=== PATIENT | male | born 2000 | race Two or more races ===

== ENCOUNTER 2023-07-25 11:00 | Outpatient (AMB) | payer OTHER, SELFPAY ==
--- NOTE | 2023-07-25 11:03 | AM.OFFWIN_ITS ---
Intake Vital Signs 07/25/23 11:07 Height 5 ft 7 in Weight 205 lb BMI 32.1 BP 112/72 Blood Pressure Location Rt brachial Position Sitting Pulse 76 Pulse Source Pulse Oximeter Temp 100.2 F Temp Source Oral Pulse Oximetry (%) 97 Intake Visit Reasons: EP Coughing alot , Congestion, neg for covid Intake Note: pt is here today for coughing, sinus congestion, has negative at home covid test. Patient Tobacco Use Status: Never used Tobacco Allergies No Known Allergies Allergy (Verified 07/25/23 11:37) Medication List - Last Reconciled 07/25/23 by HOLLIS Pritchard cetirizine (Zyrtec) 10 mg PO DAILY PRN fluticasone propionate 110 mcg/actuation (Flovent HFA) 2 puffs inhalation BID inhalational spacing device (Aerochamber MV spacer) As directed ProAir HFA 90 mcg/actuation (albuterol sulfate) 2 puffs inhalation Q6H PRN NS Do you need a note to return to daycare/school/sports/work: Yes HPI HPI Comments History of Present Illness Details Patient is a 22-year-old male in today for a sick visit. He states for the past 2 days he has developed symptoms of sore throat, chest tightness, cough, headache. He has sick contacts at work. States he has had low-grade fever, little appetite, however he is able to hold down foods and drinks. Denies chest pain, shortness a breath, numbness, nausea, vomiting, diarrhea. Has tried Tylenol with mild effect Will obtain strep any URI swab. [facility] Medical History Obesity (BMI 35.0-39.9 without comorbidity) Mild intermittent asthma in adult without complication Surgical History No pertinent past surgical history Family History Maternal Aunt Bronchial asthma Father Psoriasis Mother Anxiety Social History Housing: House Patient Tobacco Use Status: Never used Tobacco e-Cigarette/Vaping Use: Never Used service: No Current occupational status: employed Review of Systems Const All systems reviewed & are unremarkable except as noted in HPI and below Physical Exam Vital Signs: Last Vital Signs Temp 100.2 F 07/25/23 11:07 Pulse 76 07/25/23 11:07 BP 112/72 07/25/23 11:07 Pulse Ox 97 07/25/23 11:07 BMI result Body Mass Index 32.1 Const Other: Appearance: Alert.? Oriented X3.? No acute distress.? Head: Normocephalic, Eyes: Pupils equal, round and reactive to light.? ENT: Pharynx erythema + cobblestone. No post nasal drip. TM intact and pearly warren. Neck: Normal inspection.? Neck supple.? CVS: Normal heart rate and rhythm.? Pulses normal.? Respiratory: No respiratory distress.? Breath sounds normal.? Neuro: Oriented X 3.? Results AMB Rapid Strep AMB Rapid Strep Negative Last Edit by Prem Bethea MA on 07/25/23 11:52 Assessment & Plan Assessment & Plan (1) Upper respiratory infection: Comment: Will obtain URI swab. In office strep was negative. Will refill patient's albuterol inhaler and also give prescription for prednisone. Patient has been educated on signs of worsening symptoms and when to report back to the walk-in or when to present to the ED. he has also been educated to stay hydrated, rest. Code(s): J06.9 - Acute upper respiratory infection, unspecified Qualifiers: URI type: unspecified URI Qualified Code(s): J06.9 - Acute upper respiratory infection, unspecified Plan: Take your medications as prescribed. If you were prescribed antibiotics today, it is important that you take your medication to their entirety, do not skip any doses, do not finish them early. Follow-up with your primary care provider this week. Return to the emergency department with new or worsening symptoms. Such as fev ers, chills, chest pain, shortness of breath, nausea, vomiting, dizziness, headache, vision changes, lethargy In case of emergency call 911 Plan follow up with pcp. Orders: Orders SARS-CoV2/FLU/RSV Today J06.9 - Acute upper respiratory infection, unspecified Medications: New prednisone 40 mg (2 x 20 mg) PO DAILY 10 tabs 0RF Refilled ProAir HFA 90 mcg/actuation (albuterol sulfate) 2 puffs inhalation Q6H PRN 8.5 grams 0RF shortness of breath or wheezing NS Coding Level of Care Code Est Pt Level 3 (54560) Diagnoses Upper respiratory tract infection, unspecified type J06.9 URI type: unspecified URI Time Spent (min) 23
[2023-07-25 11:07] VITALS: BP 112/72; PULSE 76; TEMP 37.9; O2SAT 97; BMI 32.1
== END 2023-07-25 12:09 | disposition home or self-care (01) ==
PROVIDERS: PCP Internal Medicine; Visit Provider Nurse Practitioner Primary Care
DX: J06.9 Acute upper respiratory infection, unspecified (principal)
CPT/HCPCS: 99213

== ENCOUNTER 2023-07-25 13:43 | Outpatient (REF) | payer OTHER, SELFPAY ==
[2023-07-25 14:45] LABS: Influenza A PCR NEGATIVE (Negative); Influenza B PCR NEGATIVE (Negative); Resp Syncy Virus RNA Qual PCR NEGATIVE (Negative); SARS COV2 PCR INHOUSE NEGATIVE (Negative)
== END 2023-07-25 13:44 | disposition home or self-care (01) ==
LOC: HO.LNP 13:43
PROVIDERS: Visit Provider Nurse Practitioner Primary Care
DX: J06.9 Acute upper respiratory infection, unspecified (principal)
CPT/HCPCS: 0241U

== ENCOUNTER 2023-08-04 11:37 | Outpatient (AMB) | payer OTHER, SELFPAY ==
[2023-08-04 12:06] VITALS: BP 118/70; PULSE 78; TEMP 37.2; O2SAT 98; BMI 32.1
--- NOTE | 2023-08-04 12:06 | AM.OFFWIN_ITS ---
Intake Vital Signs 08/04/23 12:06 Height 5 ft 7 in Weight 205 lb BMI 32.1 BP 118/70 Blood Pressure Location Rt brachial Position Sitting Pulse 78 Pulse Source Pulse Oximeter Temp 98.9 F Temp Source Temporal Artery Scan Pulse Oximetry (%) 98 Intake Visit Reasons: EP ear infection antibiotics not working Intake Note: pt is here for c/o ear infection was seen in another urgent care and states his ears still feel discomfort Patient Tobacco Use Status: Never used Tobacco Allergies No Known Allergies Allergy (Verified 08/04/23 12:08) Do you need a note to return to daycare/school/sports/work: No HPI EP ear infection antibiotics not working HPI Details 22-year-old male patient presents today the walk-in clinic for bilateral ear pressure/pain, [id number]. He was seen for this at another urgent care office about 1 week ago, and was diagnosed with bilateral otitis media, and started on amoxicillin. He was also prescribed Flonase and Zyrtec, however it does not sound like he has been taking these. He completes his course of amoxicillin today, and reports his ear pressure/pain remains the same. Denies any fever or chills. Denies any other upper respiratory symptoms. [facility] Medical History Obesity (BMI 35.0-39.9 without comorbidity) Mild intermittent asthma in adult without complication Surgical History No pertinent past surgical history Family History Maternal Aunt Bronchial asthma Father Psoriasis Mother Anxiety Social History Housing: House Patient Tobacco Use Status: Never used Tobacco e-Cigarette/Vaping Use: Never Used service: No Current occupational status: employed Review of Systems Const All systems reviewed & are unremarkable except as noted in HPI and below Physical Exam Vital Signs: Last Vital Signs Temp 98.9 F 08/04/23 12:06 Pulse 78 08/04/23 12:06 BP 118/70 08/04/23 12:06 Pulse Ox 98 08/04/23 12:06 BMI result Body Mass Index 32.1 Const General: cooperative and no acute distress HEENT Head: Yes normal to inspection Ears: hearing grossly normal bilaterally, external ears normal and TM abnormal (bilateral erythema, effusion R>L) wth effusion and with fluid behind the TM bilateral General nose exam: Normal external nose present and Normal nasal mucous membranes and turbinates present Face and sinus: Yes normal facial exam Throat: Yes posterior oropharynx normal Neck Neck: Yes no lymphadenopathy Resp Effort & Inspection: normal respiratory effort Auscultation: clear to auscultation bilaterally Skin General skin exam: no rashes or lesions noted Extrem General: Yes capillary refill normal and Yes no clubbing, cyanosis or edema Assessment & Plan Assessment & Plan (1) Bilateral otitis media with effusion: Code(s): H65.93 - Unspecified nonsuppurative otitis media, bilateral Plan: Patient recently completed course of amoxicillin without any benefit. Will start doxy b.i.d. 7 days. Strongly encouraged patient to utilize previously prescribed Flonase and Zyrtec. He may also use Tylenol as needed for any pain. We reviewed indications, use, possible side effects of antibiotics prescribed. If he does not improve with treatment, or if symptoms worsen, he should return to the clinic or PCP for further evaluation. Patient verbalizes understanding and agrees to plan. Medications: New doxycycline hyclate 100 mg PO BID 7 days 14 tabs 0RF H65.93 - Unspecified nonsuppurative otitis media, bilateral Coding Level of Care Code Est Pt Level 4 (86601) Diagnoses Bilateral otitis media with effusion H65.93
== END 2023-08-04 13:07 | disposition home or self-care (01) ==
PROVIDERS: PCP Internal Medicine; Visit Provider Nurse Practitioner Family
DX: H65.93 Unspecified nonsuppurative otitis media, bilateral (principal)
CPT/HCPCS: 99214